=== PATIENT | female | born 1960 | race Caucasian/White ===

== ENCOUNTER 2016-09-10 08:44 | Day surgery (SDC) | payer OTHER ==
[~2016-09-10] VITALS: Ht 175.3 cm; Wt 85.4 kg
[~2016-09-10 08:44] MED LIST: AMITRIPTYLINE H25 M1 PO; ARIMIDEX1 MG PO; ASPI325T6 PO; BENADRYL25 M2 PO; CALCIUM WITH D31 CTB PO; CALCIUM WITH VI1 TAB PO; CHLORTAB-44 MG PO; DIPHENHYDRAMINE25 MG PO; FLAX OIL1000 MG PO; GLUCOPHAGE1000 MG PO; GLUCOTROL10 MG PO; JANUMET 1000 MG1 TA1 PO; MULTIVITAMIN FO1 CAP PO; NITROSTAT0.4 MG/TAB SL; NORCO 325 MG-51 TAB PO; OMEGA-31 SGL PO; PRAVACHOL 40MG40 MG PO; VITAMIN C500 MG PO; ZEBETA 5MG5 MG PO
[2016-09-10] MEDS ORDERED: GLUCOPHAGE1000 MG PO (09:33)
[2016-09-10] MEDS ORDERED: TRADJENTA5 MG PO (09:34)
[2016-09-10] MEDS ORDERED: KLOR-CON SPRIN10 MEQ PO (09:37)
[2016-09-10] MEDS ORDERED: NITROSTAT0.4 MG/TAB SL (09:37)
[2016-09-10] MEDS ORDERED: [UNRECOGNIZED DRUG - OTHER] PO (09:39)
[2016-09-10 10:24] VITALS: BP 123/65; PULSE 76; TEMP 98.5
[2016-09-10 11:02] VITALS: BP 109/57; PULSE 75; TEMP 97.6
[2016-09-10] MEDS ORDERED: NORCO 325 MG-51 TAB PO (11:08)
[2016-09-10 11:15] VITALS: BP 105/59; PULSE 75
[2016-09-10 11:30] VITALS: BP 106/67; PULSE 75
[2016-09-10 11:45] VITALS: BP 111/62; PULSE 75
[2016-09-10 12:00] VITALS: BP 115/62; PULSE 77
== END 2016-09-10 12:55 | disposition home or self-care (01) ==
LOC: SDCO 08:44
DX: C79.2 Secondary malignant neoplasm of skin (principal); C50.911 Malignant neoplasm of unspecified site of right female breast; L90.5 Scar conditions and fibrosis of skin; C77.1 Secondary and unspecified malignant neoplasm of intrathoracic lymph nodes; C78.7 Secondary malignant neoplasm of liver and intrahepatic bile duct; K21.9 Gastro-esophageal reflux disease without esophagitis; E11.9 Type 2 diabetes mellitus without complications; I10 Essential (primary) hypertension; I25.10 Atherosclerotic heart disease of native coronary artery without angina pectoris; G47.33 Obstructive sleep apnea (adult) (pediatric); D64.9 Anemia, unspecified; Z87.891 Personal history of nicotine dependence; Z95.9 Presence of cardiac and vascular implant and graft, unspecified; Z90.11 Acquired absence of right breast and nipple; Z79.84 Long term (current) use of oral hypoglycemic drugs
CPT/HCPCS: J0690; J2704; J3010; J7030

== ENCOUNTER 2018-02-08 12:49 | Inpatient (IN) | payer OTHER ==
[~2018-02-08] VITALS: Ht 175.3 cm; Wt 66.0 kg
[~2018-02-08 12:49] MED LIST changes: +KLOR-CON SPRIN10 MEQ PO; +TRADJENTA5 MG PO; +[UNRECOGNIZED DRUG - OTHER] PO
[2018-02-08 13:58] LABS: BASO % 0.3 % (0.0-2.0); EOS % 0.3 % (0-4.0); GRAN # 5.4 (1.4-6.5); GRAN % 82.3 % (42.2-75.2); HEMOGLOBIN 10.1 g/dl (12.5-16.0); LYMPH # 0.7 (1.2-3.4); LYMPH % 11.3 % (20.0-51.0); MEAN CELL VOLUME 85 fl (80.0-100.0); MEAN CORPUSCULAR HEMOGLOBIN 27 pg (27.0-31.0); MEAN CORPUSCULAR HGB CONC 32 g/dl (33.0-37.0); MEAN PLATELET VOLUME 8.5 fl (7.4-10.4); MONO # 0.4 (0.1-0.6); MONO % 5.5 % (1.7-9.3); PLATELET COUNT 195 K/mm3 (130-400); REDCELL DISTRIBUTION WIDTH-CV 13.8 % (11.5-14.5)
[2018-02-08 13:59] LABS: HEMATOCRIT 31.3 % (37.0-47.0)
[2018-02-08 14:02] LABS: INR 1.2 (0.8-3.0); PROTHROMBIN TIME 13.5 SECONDS (9.7-12.8)
[2018-02-08 14:05] LABS: PARTIAL THROMBOPLASTIN TIME 32.8 SECONDS (26.0-37.0)
[2018-02-08 14:06] LABS: ALBUMIN 3.9 gm/dL (3.5-5.0); BILIRUBIN,TOTAL 0.3 mg/dL (0.0-1.0); CALCIUM 9.7 mg/dL (8.4-10.2); CREATININE, serum 0.36 mg/dL (0.52-1.25); POTASSIUM 3.5 mmol/L (3.4-5.0); TOTAL PROTEIN 7.6 gm/dL (6.4-8.2)
[2018-02-08] MEDS ORDERED: GLUCOPHAGE1000 MG PO (16:01)
[2018-02-08] MEDS ORDERED: TRADJENTA5 MG PO (16:02)
[2018-02-08] MEDS ORDERED: GLUCOTROL10 MG PO (16:02)
[2018-02-08] MEDS ORDERED: FLAXSEED OIL1000 MG PO (16:03)
[2018-02-08] MEDS ORDERED: MULTIVITAMIN FO1 CAP PO (16:04)
[2018-02-08] MEDS ORDERED: PRAVACHOL 40MG40 MG PO (16:04)
[2018-02-08] MEDS ORDERED: ZEBETA 5MG5 MG PO (16:04)
[2018-02-08] MEDS ORDERED: AMITRIPTYLINE H25 M1 PO (16:05)
[2018-02-08] MEDS ORDERED: ASPIRIN 32325 MG/TAB PO (16:05)
[2018-02-08] MEDS ORDERED: BENADRYL25 M2 PO (16:07)
[2018-02-08] MEDS ORDERED: CALCIUM 600/VIT1 CA1 PO (16:07)
[2018-02-08] MEDS ORDERED: NITROSTAT0.4 MG/TAB SL (16:08)
[2018-02-08] MEDS ORDERED: K-TAB10 (16:08)
[2018-02-08] MEDS ORDERED: K-DUR 10 MEQ T10 MEQ PO (16:08)
[2018-02-08] MEDS ORDERED: NORCO 325 MG-51 TAB PO (16:09)
[2018-02-09 00:59] VITALS: BP 86/51; PULSE 98; TEMP 98.4
[2018-02-09 04:32] VITALS: BP 101/52; PULSE 95; TEMP 99.6
[2018-02-09 06:32] LABS: BASO % 0.3 % (0.0-2.0); EOS % 0.7 % (0-4.0); GRAN # 3.9 (1.4-6.5); GRAN % 67.2 % (42.2-75.2); LYMPH # 1.3 (1.2-3.4); LYMPH % 22.2 % (20.0-51.0); MEAN CELL VOLUME 85 fl (80.0-100.0); MEAN CORPUSCULAR HGB CONC 32 g/dl (33.0-37.0); MEAN PLATELET VOLUME 8.5 fl (7.4-10.4); MONO # 0.5 (0.1-0.6); MONO % 9.4 % (1.7-9.3); PLATELET COUNT 188 K/mm3 (130-400); RED BLOOD COUNT 3.22 M/mm3 (4.10-5.30)
[2018-02-09 06:34] LABS: HEMATOCRIT 27.5 % (37.0-47.0); HEMOGLOBIN 8.8 g/dl (12.5-16.0); MEAN CORPUSCULAR HEMOGLOBIN 27 pg (27.0-31.0)
[2018-02-09 06:46] LABS: CALCIUM 9.1 mg/dL (8.4-10.2); CREATININE, serum 0.38 mg/dL (0.52-1.25); POTASSIUM 3.2 mmol/L (3.4-5.0)
[2018-02-09 07:31] VITALS: BP 119/64; PULSE 98; TEMP 98.9
[2018-02-09 11:18] VITALS: BP 121/71; PULSE 88; TEMP 98.3
== END 2018-02-09 13:35 | disposition short-term general hospital (02) | DRG 543 ==
LOC: COL.ER 12:49 → SURG 15:30 → ICU 15:55 → SURG 16:28
PROVIDERS: Emergency Medicine; Hospitalist
DX: M84.451A Pathological fracture, right femur, initial encounter for fracture (principal); C78.02 Secondary malignant neoplasm of left lung; C78.01 Secondary malignant neoplasm of right lung; C79.51 Secondary malignant neoplasm of bone; E11.40 Type 2 diabetes mellitus with diabetic neuropathy, unspecified; I25.10 Atherosclerotic heart disease of native coronary artery without angina pectoris; Z85.3 Personal history of malignant neoplasm of breast; Z66 Do not resuscitate; E87.6 Hypokalemia; E83.42 Hypomagnesemia; D64.9 Anemia, unspecified
CPT/HCPCS: 99222-AI; 99239; A9284; J0690; J1170; J2250; J2704; J3010; J3475; J3480; J7030

== ENCOUNTER → 2018-02-22 | Outpatient (REF) ==
[~2018-02-22] MED LIST changes: +ASPIRIN 32325 MG/TAB PO; +CALCIUM 600/VIT1 CA1 PO; +FLAXSEED OIL1000 MG PO; +K-DUR 10 MEQ T10 MEQ PO; +K-TAB10
[2018-02-22 10:26] LABS: HEMATOCRIT 32.7 % (37.0-47.0); HEMOGLOBIN 10.3 g/dl (12.5-16.0); MEAN CELL VOLUME 88 fl (80.0-100.0); MEAN CORPUSCULAR HEMOGLOBIN 28 pg (27.0-31.0); MEAN CORPUSCULAR HGB CONC 32 g/dl (33.0-37.0); PLATELET COUNT 407 K/mm3 (130-400)
== END ==
LOC: ZLAB.STJ 10:19
PROVIDERS: Internal Medicine
DX: R68.89 Other general symptoms and signs (principal)

== ENCOUNTER → 2018-03-02 | Outpatient (REF) ==
[2018-03-02 09:55] LABS: BASO % 0.1 % (0.0-2.0); EOS # 0.1 (0.0-0.7); EOS % 0.7 % (0-4.0); GRAN # 7.3 (1.4-6.5); HEMOGLOBIN 11.3 g/dl (12.5-16.0); LYMPH % 20.1 % (20.0-51.0); MEAN CELL VOLUME 88 fl (80.0-100.0); MEAN CORPUSCULAR HEMOGLOBIN 28 pg (27.0-31.0); MEAN CORPUSCULAR HGB CONC 32 g/dl (33.0-37.0); MEAN PLATELET VOLUME 8.4 fl (7.4-10.4); MONO # 0.6 (0.1-0.6); MONO % 5.9 % (1.7-9.3); PLATELET COUNT 223 K/mm3 (130-400); REDCELL DISTRIBUTION WIDTH-CV 17.7 % (11.5-14.5)
[2018-03-02 09:57] LABS: HEMATOCRIT 35.1 % (37.0-47.0)
== END ==
LOC: ZLAB.STJ 09:45
PROVIDERS: Internal Medicine
DX: R68.89 Other general symptoms and signs (principal)

== ENCOUNTER 2018-05-27 12:16 | Emergency (ER) | payer OTHER ==
[~2018-05-27] VITALS: Ht 175.3 cm; Wt 75.0 kg
[2018-05-27 12:19] VITALS: TEMP 98.5
[2018-05-27 12:47] LABS: BASO % 0.3 % (0.0-2.0); EOS # 0.1 (0.0-0.7); EOS % 2.1 % (0-4.0); GRAN # 3.9 (1.4-6.5); HEMATOCRIT 35.2 % (37.0-47.0); HEMOGLOBIN 10.8 g/dl (12.5-16.0); LYMPH # 1.4 (1.2-3.4); LYMPH % 23.7 % (20.0-51.0); MEAN CELL VOLUME 88 fl (80.0-100.0); MEAN CORPUSCULAR HEMOGLOBIN 27 pg (27.0-31.0); MEAN CORPUSCULAR HGB CONC 31 g/dl (33.0-37.0); MEAN PLATELET VOLUME 8.2 fl (7.4-10.4); MONO # 0.6 (0.1-0.6); MONO % 9.7 % (1.7-9.3); PLATELET COUNT 374 K/mm3 (130-400); RED BLOOD COUNT 3.98 M/mm3 (4.10-5.30); REDCELL DISTRIBUTION WIDTH-CV 15.4 % (11.5-14.5)
[2018-05-27 12:52] LABS: INR 1.1 (0.8-3.0); PROTHROMBIN TIME 12.8 SECONDS (9.7-12.8)
[2018-05-27 13:01] LABS: ALBUMIN 4.1 gm/dL (3.5-5.0); BILIRUBIN,TOTAL 0.3 mg/dL (0.0-1.0); C-REACTIVE PROTEIN 4.7 mg/dL (0.0-0.9); CALCIUM 10.4 mg/dL (8.4-10.2); CREATININE, serum 0.42 mg/dL (0.52-1.25); POTASSIUM 4.2 mmol/L (3.4-5.0); TOTAL PROTEIN 8.1 gm/dL (6.4-8.2)
[2018-05-27 13:38] LABS: COLLECTION METHOD CLEAN CATCH
[2018-05-27 13:50] LABS: MUCOUS Present /lpf; PH 5 (5-8); SQUAMOUS EPITHELIAL None Seen /hpf; URINE APPEARANCE Clear; URINE BACTERIA None Seen /hpf; URINE BILIRUBIN Negative (NEGATIVE); URINE BLOOD Negative (NEGATIVE); URINE COLOR Amber; URINE GLUCOSE Negative (NEGATIVE); URINE KETONE Trace (NEGATIVE); URINE LEUKOCYTE ESTERASE Negative (NEGATIVE); URINE NITRATE Negative (NEGATIVE); URINE PROTEIN(semi-quant) Negative (NEGATIVE); URINE RBC 0-2 /hpf
[2018-05-27 14:57] VITALS: BP 119/70; PULSE 87
== END 2018-05-27 14:59 | disposition home or self-care (01) ==
LOC: COL.ER 12:16
PROVIDERS: Emergency Medicine
DX: R10.9 Unspecified abdominal pain (principal); E11.9 Type 2 diabetes mellitus without complications; I25.10 Atherosclerotic heart disease of native coronary artery without angina pectoris; Z79.84 Long term (current) use of oral hypoglycemic drugs; Z98.51 Tubal ligation status; Z87.891 Personal history of nicotine dependence; Z85.3 Personal history of malignant neoplasm of breast
CPT/HCPCS: J2270; J2405; J7030

== ENCOUNTER 2018-09-25 10:13 | Inpatient (IN) | payer BC ==
[~2018-09-25] VITALS: Ht 22.9 cm; Wt 64.6 kg
[2018-09-25 11:06] LABS: MEAN CELL VOLUME 84 fl (80.0-100.0); MEAN CORPUSCULAR HGB CONC 31 g/dl (33.0-37.0); MEAN PLATELET VOLUME 8.2 fl (7.4-10.4); PLATELET COUNT 198 K/mm3 (130-400); RED BLOOD COUNT 3.64 M/mm3 (4.10-5.30); REDCELL DISTRIBUTION WIDTH-CV 16.8 % (11.5-14.5)
[2018-09-25 11:10] LABS: HEMATOCRIT 30.4 % (37.0-47.0); HEMOGLOBIN 9.4 g/dl (12.5-16.0); MEAN CORPUSCULAR HEMOGLOBIN 26 pg (27.0-31.0)
[2018-09-25 11:17] LABS: ALANINE AMINOTRANSFERASE < 6 U/L (9-52); ALBUMIN 3.6 gm/dL (3.5-5.0); ALKALINE PHOSPHATASE 117 U/L (50-136); ANION GAP 13 mmol/L (7-16); AST,SGOT 32 U/L (15-37); BILIRUBIN,TOTAL 0.6 mg/dL (0.0-1.0); BLOOD UREA NITROGEN 10 mg/dL (7-17); CALCIUM 9.7 mg/dL (8.4-10.2); CARBON DIOXIDE 27 mmol/L (22-30); CHLORIDE 96 mmol/L (98-107); CREATININE, serum 0.48 (0.52-1.25); GLUCOSE 216 mg/dL (74-106); LIPASE 22 U/L (23-300); POTASSIUM 3.7 mmol/L (3.4-5.0); SODIUM 136 mmol/L (137-145); TOTAL PROTEIN 7.4 gm/dL (6.4-8.2)
[2018-09-25 11:36] LABS: BAND 22 % (0-10); EOSINOPHIL 1 % (0-4); HYPOCHROMIA 1+; LYMPHOCYTE 8 % (20.0-51.0); METAMYELOCYTE 5 % (0-0); NEUTROPHILS 54 % (42.0-75.2); NUCLEATED RED BLOOD CELL 1 (0-6); PLATELET ESTIMATE NORMAL (NORMAL)
[2018-09-25 11:43] LABS: COLLECTION METHOD CLEAN CATCH
[2018-09-25] MEDS ORDERED: FLEXERIL 1010 MG/TAB PO (11:59)
[2018-09-25 12:00] LABS: MUCOUS Present /lpf; PH 5 (5-8); SQUAMOUS EPITHELIAL 0-2 /hpf; URINE APPEARANCE Clear; URINE BACTERIA Many /hpf; URINE BILIRUBIN Negative (NEGATIVE); URINE BLOOD Negative (NEGATIVE); URINE COLOR Amber; URINE GLUCOSE Negative (NEGATIVE); URINE KETONE Negative (NEGATIVE); URINE LEUKOCYTE ESTERASE Negative (NEGATIVE); URINE NITRATE Positive (NEGATIVE); URINE PROTEIN(semi-quant) Negative (NEGATIVE); URINE UROBILINOGEN Negative (NEGATIVE)
[2018-09-25] MEDS ORDERED: FENTANYL 100MCG TP (12:01)
[2018-09-25] MEDS ORDERED: MELATONIN1 MG PO (12:02)
[2018-09-25] MEDS ORDERED: MIRALAX PA17 GM/Dose (12:02)
[2018-09-25] MEDS ORDERED: ROXANOL 20MG20 MG/ML PO (12:03)
[2018-09-25] MEDS ORDERED: MIRALAX PA17 GM/Dose PO (12:03)
[2018-09-25] MEDS ORDERED: ZOFRAN ODT8 MG PO (12:04)
[2018-09-25] MEDS ORDERED: PRIMLEV PO (12:05)
[2018-09-25] MEDS ORDERED: TRULICITY1.5 MG/0.5 SQ (12:06)
[2018-09-25] MEDS ORDERED: MULTI VITAMINS1 TAB PO (12:06)
[2018-09-25] MEDS ORDERED: BENADRYL25 M2 PO (12:08)
[2018-09-25] MEDS ORDERED: AMITRIPTYLINE H25 M1 PO (12:08)
[2018-09-25] MEDS ORDERED: ASPIRIN 32325 MG/TAB PO (12:08)
[2018-09-25] MEDS ORDERED: COLACE 100100 MG/CAP PO (12:09)
[2018-09-25] MEDS ORDERED: CALCIUM 600/VIT1 CA1 PO (12:09)
[2018-09-25] MEDS ORDERED: ZEBETA 5MG5 MG PO (12:09)
[2018-09-25 16:17] VITALS: BP 98/54; PULSE 96; TEMP 98.2
--- NOTE | 2018-09-25 17:09 | NUR ---
Pt arrived to room 307 at this time. She is A/O x3, but patient reports forgetfulness. Pt states she has pain to pelvis and L femur with movement. At rest pain limited. Pt assisted to use of bedpan as patient states she has BLE weakness, no urination produced. Pt denies N/V. No SOB, pt on 2L O2 via NC. PAC accessed in ER, no complications visualized. POC discussed with patient who verbalizes understanding. No needs at this time. Call light within reach. Will continue to monitor.
--- NOTE | 2018-09-25 19:45 | NUR ---
Shift assessment complete. Pt resting in bed, awake, a&o c int forgetfullness, cooperative c cares. Pt c/o chronic pain to pelvis/L femur, rated 2/10 at rest et 8/10 c any movement. Pt assisted to bedpan at this time causing increased pain; PRN pain media job titles per req, 2 tab percocet per home dose. Pt denies any other c/o. PAC noted to L chest, patent c good blood return. O2 per NC. Pt denies further needs. Call light in reach, bed alarm on. Will monitor.
[2018-09-25 19:47] VITALS: BP 111/66; PULSE 104; TEMP 99
[2018-09-25 23:19] VITALS: BP 84/51; PULSE 82; TEMP 98
[2018-09-26 04:29] VITALS: BP 106/56; PULSE 88; TEMP 98.9
--- NOTE | 2018-09-26 05:21 | NUR ---
Pt resting in bed, condition unchanged. Pt continued c/o pain to pelvis et LLE; min pain while at rest, significant c any movement. Pt has slept well this shift. Pain moderately well contolled c frequent pain physician general internal medicine up req, pt following home regimine. Pt has otherwise denied c/o or needs. Pain med recently admin, pt denies further needs. Call light in reach, bed alarm on.
[2018-09-26 05:52] LABS: HEMATOCRIT 26.7 % (37.0-47.0); HEMOGLOBIN 8.1 g/dl (12.5-16.0); MEAN CELL VOLUME 86 fl (80.0-100.0); MEAN CORPUSCULAR HEMOGLOBIN 26 pg (27.0-31.0); MEAN CORPUSCULAR HGB CONC 30 g/dl (33.0-37.0); MEAN PLATELET VOLUME 8.7 fl (7.4-10.4); PLATELET COUNT 209 K/mm3 (130-400); RED BLOOD COUNT 3.11 M/mm3 (4.10-5.30); REDCELL DISTRIBUTION WIDTH-CV 16.7 % (11.5-14.5)
[2018-09-26 05:56] LABS: CALCIUM 8.9 mg/dL (8.4-10.2); CREATININE, serum 0.36 (0.52-1.25); POTASSIUM 3.4 mmol/L (3.4-5.0)
[2018-09-26 06:51] LABS: BAND 3 % (0-10); EOSINOPHIL 8 % (0-4); LYMPHOCYTE 22 % (20.0-51.0); NEUTROPHILS 53 % (42.0-75.2); PLATELET ESTIMATE NORMAL (NORMAL)
[2018-09-26 08:21] VITALS: BP 106/58; PULSE 91; TEMP 99.2
--- NOTE | 2018-09-26 09:45 | NUR ---
Patient assessment complete and charted. patient on 2L NC, denies SOB and dizziness. Denies chest pain or nausea. patient has had 2 BM's this morning, brown liquid stools. Pt refused colace and miralax. Pt heels are reddened, this nurse placed pillow under to elevate. Coccyx has couple of small and scabbed open sores. Pt denies other needs at this time. Call light within reach.
--- NOTE | 2018-09-26 10:36 | NUR ---
Attempted to meet with pt yaima this morning. She became angry accusing me of "telling her she had shingles on her butt" at [facility] [place]. Reassured pt that this was our first meeting and that I had not seen her before so. States she thinks her brain mets are worse and that is causing her to feel the way she does. Advised me that she will need to void and then go to a scan and then I can come talk with her.
[2018-09-26 11:42] VITALS: BP 86/51; PULSE 85; TEMP 98.7
--- NOTE | 2018-09-26 14:02 | NUR ---
Met with patient and Dr Edgar this morning to discuss goals of care. 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 This is actually what pt had told me she thought was the problem earlier today. She listened carefully to the results and then stated, it is time to go to the [facility]. This pain isn't going to get a lot better and I don't want to live like this. Pt requested that I call her sister in law, rather than her brother, to advise of her decision. She reports that her brother is not handling this situation well. Also requested to talk with [facility] reporesentative here at hospital and call and referral was made to [facility] relaying this message. Support provided. Message left for CORBY and contact information was provided. Pt requested that we not contact her brother at this time.
--- NOTE | 2018-09-26 15:21 | NUR ---
SW met with the patient to discuss discharge plan. The patient resides at [facility] in assisted living. The patient's PCP is Twyla Spears PA-C and her DPOA-HC is in EMR. A palliative care consult was ordered and the patient is wanting to focus on comfort care and pursue [facility]. Palliative Care Nurse, Chiquita, faxed a referral to [facility]. [facility] plans to meet with the patient tomorrow, 09/27. SW to continue to follow.
[2018-09-26 15:49] VITALS: BP 93/50; PULSE 110; TEMP 97.7
--- NOTE | 2018-09-26 16:41 | NUR ---
Patient assisted off bedpan. patient has had 4 bowel movements today ranging from mix of liquid to semi solid and liquid stools. Barrier cream applied to bottom.
--- NOTE | 2018-09-26 19:25 | NUR ---
Patient report given to BARBRA Fair.
--- NOTE | 2018-09-26 19:40 | NUR ---
Shift assessment complete. Pt resting in bed, awake, a&o c int forgetfullness. Pt reports cont chronic pain to pelvis/back/femur; PRN pain meds admin per pt req. PAC noted to L chest, patent c good blood return. POC including comfort measures discussed c pt. Pt denies further needs at this time. Call light in reach, bed alarm on. Will monitor.
--- NOTE | 2018-09-26 23:00 | NUR ---
Pt c/o increased pain to L leg this shift. Reports using bedpan several times during day shift. Pt also reports getting her L leg "hug up" on the bedpan c last use, c/o increased pain since that time. PRN percocet x1 dose et roxanol x2 doses given; PRN Percocet admin again now per req et pt states "it's starting to get better... I think this'll do it". Pt has had few other c/o or requests this shift. Call light in reach, bed alarm on. Will continue to monitor.
--- NOTE | 2018-09-27 05:54 | NUR ---
Pt resting in bed, condition unchanged. Pt has had continued c/o pain to pelvis/hips c increased pain to L femur this shift. Pain well controlled c PRN pain meds admin frequently upon pt request. Pt has otherwise rested c few needs. Pt now c/o pain "11/26"; will give percocet when able per request. Pt denies any other c/o or requests. Call light in reach, bed alarm on.
--- NOTE | 2018-09-27 09:10 | NUR ---
Spoke with pt, her DPOA-HC, Dean Sesay, and with hospice office services representative, Ra. They will meet together at 0945 this morning to discuss financial questions. Pt was given a comfort quilt and also a fan as she is currently feeling very hot and sweaty.
--- NOTE | 2018-09-27 09:45 | NUR ---
Patient assessment complete and charted. Patient assisted onto bedpan. Patient rating pain 10/10, reports pain in knees and hips. No BM this morning. Administered PRN flexeril per MAR. Barrier cream applied to patient bottom. 2 small skin tears, 1 open, 1 scabbed over. Bottom reddened. Pillow placed under knees, heels are reddened. Denies other needs at this time. Call light within reach.
[2018-09-27] MEDS ORDERED: MELAT3MGTAB PO (10:54)
[2018-09-27] MEDS ORDERED: ATIVAN 0.50.5 MG/TAB PO (10:55)
[2018-09-27] MEDS ORDERED: ROXANOL 20MG20 MG/ML PO (10:55)
[2018-09-27] MEDS ORDERED: FENTANYL 100MCG TP (10:55)
[2018-09-27] MEDS ORDERED: TRANSDERM-0.5 MG/21 TD (11:01)
[2018-09-27] MEDS ORDERED: PHENERGAN25 MG RC (11:02)
[2018-09-27] MEDS ORDERED: PRIMLEV PO (11:13)
--- NOTE | 2018-09-27 11:21 | NUR ---
The patient was accepted to [facility] and Dr. Tony Silva will follow. The patient is to discharge today, 09/27, to [facility]. Transportation was set for 1300, via [facility]. ADITHYA informed the patient, patient's brother, nurse, and Ra at [facility]. They were all in agreeance. No additional needs at this time.
--- NOTE | 2018-09-27 11:45 | NUR ---
Jada and her brother have met with Ra from [facility] and feel ready for discharge. We are looking at discharge at 1pm. Dr Edgar reviewed her medications and general plan and both seem comfortable with the discharge plan. Neither reports questions or concerns.
[2018-09-27 12:02] VITALS: BP 93/50; PULSE 110; TEMP 97.7
--- NOTE | 2018-09-27 13:59 | NUR ---
patient transfered to [facility]. EMS here to transfer patient. patient assisted onto stretcher. All belongings transferred with patient. This nurse will call report.
== END 2018-09-27 14:00 | disposition hospice, inpatient (51) | DRG 54 ==
LOC: COL.ER 10:13 → MEDICAL 12:49
PROVIDERS: Emergency Medicine; ADMIT Family Medicine
DX: C79.31 Secondary malignant neoplasm of brain (principal); G93.6 Cerebral edema; C79.51 Secondary malignant neoplasm of bone; C50.919 Malignant neoplasm of unspecified site of unspecified female breast; E11.65 Type 2 diabetes mellitus with hyperglycemia; Z66 Do not resuscitate; Z51.5 Encounter for palliative care; R50.9 Fever, unspecified; I25.10 Atherosclerotic heart disease of native coronary artery without angina pectoris
CPT/HCPCS: 99222-AI; 99239; A4216; J0692; J0696; J1815; J2270; J2405; J3370; J7030; J7050; Q9967